=== PATIENT | male | born 1955 | race African-American/Black ===

== ENCOUNTER 2024-06-15 09:31 | Emergency (ER) | payer MEDICARE, SELFPAY ==
[2024-06-15 09:38] VITALS: BP 218/89; PULSE 66; RESP 16; TEMP 36.6; O2SAT 100; BMI 21.7
--- NOTE | 2024-06-15 09:38 | PD.EDMEDCL ---
ED Medical Clearance RME/HPI General Chief complaint: Medical Clearance Stated complaint: CLEARANCE Time Seen by Provider: 06/15/24 09:38 Arrival date/time: 06/15/24 09:31 69-year-old male presents the emergency department today in the custody of the [facility]. Patient was in detention was found to have elevated blood pressure therefore was referred to the ER. Patient reports no headache dizziness weakness no chest pain or shortness of breath Limitations: no limitations Related Information Allergies Allergy/AdvReac Type Severity Reaction Status Date / Time Penicillins Allergy Intermediate Rash Verified 06/15/24 09:47 Review of Systems Review of Systems Systems Reviewed: All systems reviewed, normal except as documented Constitutional Constitutional: Reports system reviewed and no additional complaints, except as documented, Denies fever(s) and Denies headache(s) Eyes Eyes: Reports system reviewed and no additional complaints, except as documented and Denies blurry vision ENT Ears, Nose, Mouth, and Throat: Reports system reviewed and no additional complaints, except as documented, Denies headache(s), Denies nasal congestion and Denies nasal discharge Cardiovascular Cardiovascular: Reports system reviewed and no additional complaints, except as documented, Denies chest pain and Denies dyspnea Respiratory Respiratory: Reports system reviewed and no additional complaints, except as documented, Denies chest congestion, Denies cough and Denies dyspnea Gastrointestinal Gastrointestinal: Reports system reviewed and no additional complaints, except as documented and Denies abdominal pain Integumentary/Breasts Skin/Breast: Reports system reviewed and no additional complaints, except as documented and Denies rash Neurologic Neurologic: Reports system reviewed and no additional complaints, except as documented, Reports as per HPI and Denies headache(s) Past Medical History Past Medical History NEUROLOGIC: Negative Neurological Disorders CARDIAC: Negative Cardiac Disorders ED Exam General Limitations: Present no limitations General appearance: Present alert and in no apparent distress Head Head exam: Present atraumatic Eye Eye exam: Present normal appearance, PERRL and EOMI ENT ENT exam: Present normal exam, normal oropharynx and mucous membranes moist Neck Neck exam: Present normal inspection, full ROM and trachea midline Chest Chest inspection: Present normal inspection and symmetric chest wall rise Respiratory Respiratory exam: Present normal lung sounds bilaterally Cardiovascular Cardiovascular exam: Present regular rate, normal rhythm and normal heart sounds Abdominal Exam Abdominal exam: Present soft and normal bowel sounds Extremities Exam Extremities exam: Present normal inspection and full ROM Back Exam Back exam: Present normal inspection and full ROM Neurological Exam Neurological exam: Present alert, oriented X3 and CN II-XII intact Psychiatric Psychiatric exam: Present normal affect and normal mood Skin Skin exam: Present warm, dry, intact and normal color Course Quality Measures none Orders Category Date Time Status cloNIDine HCL [Catapres] Med 06/15/24 09:39 Discontinued 0.2 mg PO X1 ONE Vital Signs Vital signs: Vital Signs Temperature 97.9 F 06/15/24 09:38 Pulse Rate 66 06/15/24 09:38 Respiratory Rate 16 06/15/24 09:38 Blood Pressure 218/89 H 06/15/24 09:38 Pulse Oximetry (%) 100 06/15/24 09:38 Oxygen Delivery Method Room Air 06/15/24 09:38 O2 saturation 100% room air within normal limits Medical Clearance MDM Narrative [facility] Narrative:: 69-year-old male presents the emergency department today in the custody of the [facility]. Patient was in detention was found to have elevated blood pressure therefore was referred to the ER. Patient reports no headache dizziness weakness no chest pain or shortness of breath On exam patient well-appearing patient walks with steady gait patient has no abnormal neurological findings patient and I have a good conversation Patient reports has not been to a doctor in some time I do suspect that he probably suffers from hypertension and has not taken medication or had evaluation for it patient's hypertension is asymptomatic he has no chest pain no shortness of breath no dizziness or weakness Patient was given clonidine here and was discharged safely to detention Explained to the patient when he does get out he needs to follow-up with his primary care doctor for lab work and medication for his hypertension Patient data External records reviewed:: [facility] previous records Clinical information provided by:: patient Social determinants that could affect healthcare access:: none Patient has the following chronic illnesses:: None How is presenting disease/condition affected by chronic disease/condition?: no chronic disease Evaluation data The following diagnostics were reviewed and interpreted by me:: other (specify) (N/A) Lab and/or radiology exams considered but not ordered:: Consider not ordered Interpretation Summary: N/A Medications / Prescriptions Medications or Prescriptions considered but not ordered:: Given Medication administrations:: Medication Administration History Discontinued Medications Clonidine (Clonidine Hcl 0.1 Mg Tablet) 0.2 mg PO X1 ONE Stop: 06/15/24 09:40 Last Admin: 06/15/24 09:47 Dose: 0.2 mg Documented By: RD Given Consultations Consultation(s) initiated? (list below): No Diagnosis Medical Clearance Differential Diagnosis: other (Asymptomatic hypertension, hypertension, medical here for gross ration) Most likely diagnosis given after review of the tests above:: Asymptomatic hypertension Admission Indicated Admission indicated?: not indicated Admission Request Was there a request for admission?: No Disposition Plan Disposition Plan: Discharge Discharge Attestation Discharge Attestation: The patient and all family members were given an opportunity to ask questions and understood the discharge instructions. Discharge instructions specifically effects, indications for sooner follow up or return to the emergency department, and the expected course of current diagnosis. Patient condition: Stable Discharge Plan Plan Patient Disposition: Skilled Nursing/Court/Law Disposition Comment: Stable Problem List Clinical Impression: Medical clearance for incarceration, Asymptomatic hypertension Patient/Caregiver Discharge Instructions Additional Instructions: When you do get released from detention it is important you follow-up with a primary care doctor for a medical evaluation lab work and to monitor your blood pressure and to see if you need any other chronic type medications For emergent concerns return immediately Print Language: Nepali CARI/WILLIAM Supervising Physician GUILLERMO Supervising Physician: Dr Lopez
[2024-06-15 09:47] VITALS: BP 218/89; PULSE 66
[2024-06-15] MEDS: cloNIDine HCL 0.1 MG TABLET 0.2 MG PO (09:47)
== END 2024-06-15 10:06 ==
PROVIDERS: Emergency Provider Emergency Medicine
DX: Z02.89 Encounter for other administrative examinations (principal); I10 Essential (primary) hypertension; Z65.3 Problems related to other legal circumstances
CPT/HCPCS: 99282; A9270